=== PATIENT | male | born 1990 | race Caucasian/White ===

== ENCOUNTER → 2018-01-22 08:19 | Outpatient (CLI) | payer MEDICAID, SELFPAY ==
--- NOTE | 2018-01-22 08:33 | US_ITS ---
STUDY: ULTRASOUND BREAST - RIGHT REASON FOR EXAM: Male, 27 years old. Right breast enlargement/mass since age 14. Previous [id number] breast ultrasound around age 14 per patient. COMPARISON: None available. TECHNIQUE: Axial and longitudinal images of the RIGHT breast were performed with a high resolution ultrasound transducer. FINDINGS: RIGHT Breast: No ultrasound finding of malignancy identified. Left breast: Subareolar region of the left breast for comparison shows no sonographic abnormality. US/Breast Complete Unilateral IMPRESSION: No sonographic abnormality identified of the right and left breast image. If prior breast ultrasound imaging become available, addendum can be placed after comparison. Please see Bilateral Diagnostic Mammogram same day report for additional details. ASSESSMENT CATEGORY: BIRADS Category 3: Probably Benign - Short-Interval Follow-up Suggested. A letter regarding these results will be sent to the patient by the facility within 30 days. FOLLOW UP RECOMMENDATION: Follow up recommended within 6 months. (C) with bilateral mammogram and bilateral breast ultrasound. Negative mammographic and/or ultrasound results should not deter biopsy as a palpable lesion if present should be followed on clinical grounds and biopsy performed if clinically persistent for 3 months or increasing size. Clinical correlation is required. Approximately 10% of breast cancers are not detected by mammography. A normal mammogram should not delay biopsy of a clinically suspicious abnormality. Electronically Signed: Simeon Verdugo, at 15:21 EDT Tel , Service support ,
--- NOTE | 2018-01-22 09:05 | BI_ITS ---
MAMMOGRAPHY - BILATERAL DIAGNOSTIC REASON FOR EXAM: Male, 27 years old. Right breast enlargement/mass since age 14. Previous [id number] breast ultrasound around age 14 per patient. PERTINENT HISTORY: Non-contributory. TECHNIQUE: Digital examination. Mediolateral oblique (MLO) and craniocaudad (CC) views of both breasts were obtained. CAD: CAD was performed on this study. COMPARISON: None available. FINDINGS: Breast Composition: The right breast is heterogeneously dense, which may obscure small masses. The left breast is mostly fatty replaced. There are no dominant masses or suspicious calcifications. No other significant abnormalities are identified. Left axilla small round smooth margin benign-appearing calcifications seen with MLO view. BI/DIAG MAMM W/CAD, BILAT IMPRESSION: No mammographic findings malignancy identified. Findings consistent with left greater than right gynecomastia. If prior breast ultrasound imaging become available, addendum can be placed after comparison. Please see bilateral breast ultrasound same day report for additional details. ASSESSMENT CATEGORY: BIRADS Category 3: Probably Benign - Short-Interval Follow-up Suggested. A letter regarding these results will be sent to the patient by the facility within 30 days. FOLLOW UP RECOMMENDATION: Follow up recommended within 6 months. (C) Negative mammographic and/or ultrasound results should not deter biopsy as a double lesion if present should be followed on clinical grounds and biopsy performed if clinically persistent for 3 months or increasing size. Clinical correlation is required. Approximately 10% of breast cancers are not detected by mammography. A normal mammogram should not delay biopsy of a clinically suspicious abnormality. Electronically Signed: Simeon Verdugo, at 15:07 EDT Tel , Service support ,
== END ==
PROVIDERS: Family Provider Family Medicine; PCP Family Medicine; Visit Provider Family Medicine
DX: N64.89 Other specified disorders of breast (principal)
CPT/HCPCS: 76641; 77062; 77066; G0279